=== PATIENT | male | born 1995 | race Caucasian/White ===

== ENCOUNTER 2018-03-02 03:06 | Emergency (ER) | payer SELFPAY ==
[~2018-03-02] VITALS: Ht 175.3 cm; Wt 74.0 kg
[2018-03-02] MEDS ORDERED: TETANUS, DIPHTHERIA, PERTUSSIS VAC/PF 0.5ML (>7YR OLD) IM ONE (07:45)
[2018-03-02] MEDS ORDERED: BACITRACIN ZINC OINT UDPKT TOP ONE (07:45)
[2018-03-02] MEDS ORDERED: IBUPROFEN 600MG TABLET PO ONE (07:45)
[2018-03-02 08:59] VITALS: BP 128/71
== END 2018-03-02 09:10 | disposition home or self-care (01) ==
LOC: ER 03:06
DX: T63.301A Toxic effect of unspecified spider venom, accidental (unintentional), initial encounter (principal); L03.031 Cellulitis of right toe; L03.115 Cellulitis of right lower limb; Y92.89 Other specified places as the place of occurrence of the external cause; R03.0 Elevated blood-pressure reading, without diagnosis of hypertension; F14.10 Cocaine abuse, uncomplicated; F12.90 Cannabis use, unspecified, uncomplicated
CPT/HCPCS: 90471; 90715; 99283; Z7610

== ENCOUNTER 2018-05-17 12:44 | Emergency (ER) | payer MEDICAID ==
[~2018-05-17] VITALS: Ht 172.7 cm; Wt 73.0 kg
[2018-05-17] MEDS ORDERED: SODIUM CHLORIDE 0.9% 1,000 ML IV ONE (12:53)
[2018-05-17 13:28] LABS: BASOPHILS % 0.4 % (0.0-2.0); EOSINOPHILS % 5.1 % (0.0-5.0); HEMATOCRIT. 44.1 % (42.0-52.0); HEMOGLOBIN. 15.4 g/dL (14.0-18.0); LYMPHOCYTES % 40.2 % (20.0-50.0); MEAN CORPUSCULAR HEMOGLOBIN 29.4 pg (28.0-32.0); MEAN CORPUSCULAR VOLUME 84.4 fL (80.0-94.0); MEAN PLATELET VOLUME 8.2 fl (7.4-10.4); MONOCYTES % 9.1 % (2.0-8.0); NEUTROPHILS % 45.2 % (40.0-76.0); PLATELET 200 x1000/uL (130-400); RED BLOOD CELL COUNT 5.23 mill/uL (4.7-6.1); RED CELL DISTRIBUTION WIDTH 14.2 % (11.6-14.6)
[2018-05-17 13:33] LABS: CLARITY URINE CLEAR (CLEAR); KETONES URINE NEGATIVE (NEGATIVE); LEUKOCYTE ESTERASE URINE NEGATIVE (NEGATIVE); NITRITE URINE NEGATIVE (NEGATIVE); OCCULT BLOOD URINE NEGATIVE (NEGATIVE); PH URINE 6.5 (4.5-8.0); PROTEIN URINE NEGATIVE (NEGATIVE); SPECIFIC GRAVITY URINE 1.017 (1.005-1.030); UROBILINOGEN URINE 0.2 E.U./dL (0.2-1.0)
[2018-05-17 13:35] LABS: COLOR URINE YELLOW (YELLOW)
[2018-05-17 13:37] LABS: INR 1.1; PARTIAL THROMBOPLASTIN TIME 34.5 sec (23.4-31.0); PROTHROMBIN TIME 10.6 sec (9.1-11.1)
[2018-05-17 13:38] LABS: CHLORIDE 104 mEq/L (98-107)
[2018-05-17 13:46] LABS: ETHANOL BLOOD < 10 mg/dL
[2018-05-17 13:49] LABS: CREATINE KINASE 89 IU/L (39-308)
[2018-05-17 13:51] LABS: CREATINE KINASE MB FRACTION < 1.0 ng/mL (0.5-3.6)
[2018-05-17 13:56] LABS: *AMPHETAMINES SCREEN URINE NEGATIVE (NEGATIVE)
[2018-05-17 13:58] LABS: *BARBITURATES SCREEN URINE NEGATIVE (NEGATIVE); *BENZODIAZEPINES SCREEN URINE NEGATIVE (NEGATIVE); *COCAINE SCREEN URINE NEGATIVE (NEGATIVE); METHADONE URINE SCREEN NEGATIVE (NEGATIVE)
[2018-05-17 13:59] LABS: CANNABINOID URINE SCREEN NEGATIVE (NEGATIVE); OPIATES URINE SCREEN NEGATIVE (NEGATIVE); PHENCYCLIDINE URINE SCREEN NEGATIVE (NEGATIVE)
[2018-05-17 15:04] VITALS: BP 122/63
== END 2018-05-17 15:35 | disposition home or self-care (01) ==
LOC: ER 12:44
DX: R53.1 Weakness (principal); R03.0 Elevated blood-pressure reading, without diagnosis of hypertension; F19.10 Other psychoactive substance abuse, uncomplicated; F32.9 Major depressive disorder, single episode, unspecified
CPT/HCPCS: 36415; 70450; 71045; 80053; 80305; 81003; 82550; 82553; 83735; 84484; 85025; 85610; 85730; 93005; 99284; G0482; J7030